=== PATIENT | male | born 1980 | race Caucasian/White ===

== ENCOUNTER 2017-09-21 15:16 | Emergency (ER) | payer OTHER ==
[~2017-09-21] VITALS: Ht 177.8 cm; Wt 63.5 kg
[2017-09-21 15:19] VITALS: BP 124/80
[2017-09-21] MEDS ORDERED: IV NORMAL SALINE 1,000ML 1,000 ML IV SCH (15:33)
[2017-09-21] MEDS ORDERED: HYDROmorphone PF 1 MG/ML DISP.SYRIN IV/SQ PRN (15:45)
[2017-09-21 15:59] LABS: BASO # 0.1 x10^3/uL (0.0-0.2); BASO % 1 % (0-3); EOS # 0.1 x10^3/uL (0.0-0.7); EOS % 1 % (0-3); HEMATOCRIT 44.6 % (39.0-53.0); HEMOGLOBIN 15.1 g/dL (13.0-17.5); LYMPH # 2.1 x10^3/uL (1.0-4.8); LYMPH % 9 % (24-48); MEAN CORPUSCULAR HEMOGLOBIN 31 pg (25-35); MEAN CORPUSCULAR HGB CONC 34 g/dL (31-37); MEAN CORPUSCULAR VOLUME 92 fL (79-100); MONO # 0.8 x10^3/uL (0.0-1.1); MONO % 3 % (0-9); NEUT # 20.5 x10^3uL (1.8-7.7); NEUT % 87 % (31-73); PLATELET COUNT 279 x10^3/uL (140-400); RED BLOOD COUNT 4.84 x10^6/uL (4.30-5.70); RED CELL DISTRIBUTION WIDTH 13.8 % (11.5-14.5); WHITE BLOOD COUNT 23.6 x10^3/uL (4.0-11.0)
[2017-09-21 16:10] LABS: ALBUMIN 4.2 g/dL (3.4-5.0); ALBUMIN/GLOBULIN RATIO 1.4 (1.0-1.7); CALCIUM 9.1 mg/dL (8.5-10.1); CREATININE 1.1 mg/dL (0.7-1.3); GFR 75.7; POTASSIUM 4.1 mmol/L (3.5-5.1); TOTAL BILIRUBIN 0.8 mg/dL (0.2-1.0); TOTAL PROTEIN 7.1 g/dL (6.4-8.2)
[2017-09-21] MEDS ORDERED: ONDANSETRON PF 4 MG/2 ML VIAL. IV ONE (16:15)
[2017-09-21] MEDS ORDERED: IOHEXOL 300 MG/ML 75 ML VIAL. IV ONE (16:15)
[2017-09-21 16:20] LABS: BACTERIA,URINE 0 /HPF (0-FEW); BILIRUBIN,URINE NEG (NEG); CLARITY,URINE HAZY; COLOR,URINE YELLOW; GLUCOSE,URINE NEG (NEG); NITRITE,URINE NEG (NEG); RBC,URINE TNTC /HPF (0-2); SQUAMOUS EPITHELIAL CELL,UR FEW /LPF; UROBILINOGEN,URINE 0.2 mg/dL (0.2 mg/dL)
--- NOTE | 2017-09-21 16:43 | RAD ---
PQRS Compliance Statement: One or more of the following individualized dose reduction techniques were utilized for this examination: 1. Automated exposure control 2. Adjustment of the mA and/or kV according to patient size 3. Use of iterative reconstruction technique CT abdomen/pelvis with contrast 09/21/2017 INDICATION: Right lower quadrant abdominal pain. COMPARISON: None available TECHNIQUE: Multiple axial CT images of the abdomen and pelvis were obtained after the intravenous initiation of 75 cc Omnipaque 300. Coronal and sagittal reformats are provided. FINDINGS: There is a 5 mm calcified granuloma at the left lung base. Visualized lung bases are otherwise clear. Heart size is within normal limits. There is a 8 mm hypodense lesion in the right hepatic dome. This is statistically favor to represent benign etiology such as a cyst or hemangioma in the absence of malignancy. Spleen, bilateral adrenal glands, and pancreas are normal in appearance. Gallbladder is present without adjacent inflammatory changes. The abdominal aorta is normal in course and caliber. There are no pathologically enlarged lymph nodes in abdomen or pelvis. There is no free fluid or free intraperitoneal air. The kidneys enhance symmetrically. There is a 2 mm calculus at the right ureterovesicular junction. There is associated mild hydroureteronephrosis. There is urothelial enhancement and periureteral fat stranding. No suspicious renal masses. Small and large bowel are normal in caliber. No evidence for bowel obstruction or inflammation. A normal appendix is visualized. No suspicious pelvic masses are identified. Urinary bladder is within normal limits given degree of distention. No suspicious osseous lesions are identified. IMPRESSION: 1. There is a 2 mm calculus at the right ureterovesicular junction. There is associated mild hydroureteronephrosis. Additionally, there is urothelial enhancement with periureteral fat stranding. Correlation with superimposed infection is recommended. 2. 8 mm hypodense lesion in the right hepatic dome is favored to represent benign etiology such as a cyst or hemangioma in the absence of underlying malignancy. Electronically signed by: Telma Arteaga MD (09/21/2017 4:40 PM) [facility]
--- NOTE | 2017-09-21 16:57 | PHYS DOC ---
Past History Past Medical History: No Pertinent History Past Surgical History: No Surgical History Smoking: Non-smoker Adult General Chief Complaint Chief Complaint: ABDOMINAL PAIN HPI HPI Patient is a 37-year-old male with right lower quadrant belly pain. He was playing the guitar had sudden onset of right lower quadrant belly pain. It was sharp. No radiation to the back. No dysuria. He's had no vomiting or diarrhea. Onset was sudden. Pain was severe. It is somewhat better now. No testicular pain. Review of Systems Review of Systems Constitutional: Denies fever or chills Eyes: Denies change in visual acuity, redness, or eye pain HENT: Denies nasal congestion or sore throat Respiratory: Denies cough or shortness of breath Cardiovascular: No additional information not addressed in HPI GI: History of present illness : Has had some dark urine Musculoskeletal: Denies back pain or joint pain Integument: Denies rash or skin lesions Neurologic: Denies headache, focal weakness or sensory changes Endocrine: Denies polyuria or polydipsia All other systems were reviewed and found to be within normal limits, except as documented in this note. Current Medications Current Medications Current Medications Medications (Trade) Dose Ordered Sig/Raj Start Time Stop Time Status Last Admin Dose Admin Hydromorphone HCl (Dilaudid) 1 mg PRN Q15MIN PRN 09/21/17 15:45 09/22/17 15:44 09/21/17 16:01 1 MG Iohexol (Omnipaque 300 Mg/ml) 75 ml 1X ONCE 09/21/17 16:15 09/21/17 16:16 DC 09/21/17 16:30 75 ML Ondansetron HCl (Zofran) 4 mg 1X ONCE 09/21/17 16:15 09/21/17 16:16 DC 09/21/17 16:01 4 MG Sodium Chloride 1,000 ml @ 1,000 mls/hr Q1H 09/21/17 15:33 09/21/17 16:32 DC 09/21/17 15:33 1,000 MLS/HR Allergies Allergies Allergies Coded Allergies Type Severity Reaction Last Updated Verified No Known Drug Allergies 09/21/17 No Physical Exam Physical Exam Constitutional: Well developed, well nourished, no acute distress, non-toxic appearance. HENT: Normocephalic, atraumatic, bilateral external ears normal, oropharynx moist, no oral exudates, nose normal. Eyes: PERRLA, EOMI, conjunctiva normal, no discharge. Neck: Normal range of motion, no tenderness, supple, no stridor. Cardiovascular:Heart rate regular rhythm, no murmur Lungs & Thorax: Bilateral breath sounds clear to auscultation Abdomen: Bowel sounds normal, soft,, no masses, no pulsatile masses. No point tenderness. Skin: Warm, dry, no erythema, no rash. Back: No tenderness, no CVA tenderness. Extremities: No tenderness, no cyanosis, no clubbing, ROM intact, no edema. Neurologic: Alert and oriented X 3, normal motor function, normal sensory function, no focal deficits noted. Psychologic: Affect normal, judgement normal, mood normal. Current Patient Data Vital Signs Vital Signs Date Time Temp Pulse Resp B/P (MAP) Pulse Ox O2 Delivery O2 Flow Rate FiO2 09/21/17 16:01 16 94 Lab Results Laboratory Tests Test 09/21/17 15:44 White Blood Count 23.6 x10^3/uL (4.0-11.0) H Red Blood Count 4.84 x10^6/uL (4.30-5.70) Hemoglobin 15.1 g/dL (13.0-17.5) Hematocrit 44.6 % (39.0-53.0) Mean Corpuscular Volume 92 fL (79-100) Mean Corpuscular Hemoglobin 31 pg (25-35) Mean Corpuscular Hemoglobin Concent 34 g/dL (31-37) Red Cell Distribution Width 13.8 % (11.5-14.5) Platelet Count 279 x10^3/uL (140-400) Neutrophils (%) (Auto) 87 % (31-73) H Lymphocytes (%) (Auto) 9 % (24-48) L Monocytes (%) (Auto) 3 % (0-9) Eosinophils (%) (Auto) 1 % (0-3) Basophils (%) (Auto) 1 % (0-3) Neutrophils # (Auto) 20.5 x10^3uL (1.8-7.7) H Lymphocytes # (Auto) 2.1 x10^3/uL (1.0-4.8) Monocytes # (Auto) 0.8 x10^3/uL (0.0-1.1) Eosinophils # (Auto) 0.1 x10^3/uL (0.0-0.7) Basophils # (Auto) 0.1 x10^3/uL (0.0-0.2) Platelet Estimate Pending Urine Collection Type Unknown Urine Color Yellow Urine Clarity Hazy Urine pH 6.0 Urine Specific [place] 1.025 Urine Protein 30 mg/dl (NEG-TRACE) Urine Glucose (UA) Neg mg/dL (NEG) Urine Ketones (Stick) Trace mg/dL (NEG) Urine Blood Large (NEG) Urine Nitrite Neg (NEG) Urine Bilirubin Neg (NEG) Urine Urobilinogen Dipstick 0.2 mg/dL (0.2 mg/dL) Urine Leukocyte Esterase Neg (NEG) Urine RBC Tntc /HPF (0-2) Urine WBC 1-4 /HPF (0-4) Urine Squamous Epithelial Cells Few /LPF Urine Bacteria 0 /HPF (0-FEW) Urine Mucus Mod /LPF Sodium Level 145 mmol/L (136-145) Potassium Level 4.1 mmol/L (3.5-5.1) Chloride Level 107 mmol/L (98-107) Carbon Dioxide Level 26 mmol/L (21-32) Anion Gap 12 (6-14) Blood Urea Nitrogen 17 mg/dL (8-26) Creatinine 1.1 mg/dL (0.7-1.3) Estimated GFR (Cockcroft-Gault) 75.7 BUN/Creatinine Ratio 15 (6-20) Glucose Level 144 mg/dL (70-99) H Calcium Level 9.1 mg/dL (8.5-10.1) Total Bilirubin 0.8 mg/dL (0.2-1.0) Aspartate Amino Transferase (AST) 10 U/L (15-37) L Alanine Aminotransferase (ALT) 17 U/L (16-63) Alkaline Phosphatase 66 U/L (46-116) Total Protein 7.1 g/dL (6.4-8.2) Albumin 4.2 g/dL (3.4-5.0) Albumin/Globulin Ratio 1.4 (1.0-1.7) Lipase 63 U/L (73-393) L EKG EKG [] Radiology/Procedures Radiology/Procedures CT scan: 2 mm stone; small liver mass. Int by radiologist. Course & Med Decision Making Course & Med Decision Making Pertinent Labs and Imaging studies reviewed. (See chart for details) Patient feels better. He is given a copy of his CT to show his doctor regarding liver mass. 2mm Kidney stone. Will return for worsening symptoms. DX: kidney stone Dismissed in stable conditionw itjh clear return warnings. Dragon Disclaimer Dragon Disclaimer This electronic medical record was generated, in whole or in part, using a voice recognition dictation system. Departure Departure: Disposition: HOME, SELF-CARE Condition: IMPROVED Referrals: SUNSHINE CHAPARRO MD (PCP) Scripts Ondansetron (ZOFRAN ODT) 8 Mg Tab.rapdis 4 MG PO TID, #10 Prov: HERNÁN RAYA MD 09/21/17 Tamsulosin Hcl (FLOMAX) 0.4 Mg Cap.er.24h 1 CAP PO DAILY, #7 CAP 11 Refills Prov: HERNÁN RAYA MD 09/21/17 Oxycodone Hcl/Acetaminophen (PERCOCET 7.5-325 MG TABLET) 1 Each Tablet 1 TAB PO BID, #15 TAB Prov: HERNÁN RAYA MD 09/21/17 HERNÁN RAYA MD Sep 21, 2017 16:57
[2017-09-21] MEDS ORDERED: ONDA8TAB12 PO (17:01)
[2017-09-21] MEDS ORDERED: OXYC-327 PO (17:01)
[2017-09-21] MEDS ORDERED: TAMS0.4C97 PO (17:01)
[2017-09-21 23:00] LABS: % BANDS 1 % (0-9); % LYMPHS 6 % (24-48); % MONOS 1 % (0-10); % SEGS 92 % (35-66)
[2017-09-21 23:01] LABS: PLT ESTIMATE ADEQUATE (ADEQUATE)
== END 2017-09-21 17:08 | disposition home or self-care (01) ==
LOC: ER 15:16
DX: N20.0 Calculus of kidney (principal)
CPT/HCPCS: 36415; 74177; 80053; 81001; 83690; 85007; 85025; 96361; 96374; 96375; 99285; J1170; J2405; Q9967; J7030

== ENCOUNTER 2018-06-02 11:52 | Emergency (ER) | payer OTHER ==
[~2018-06-02] VITALS: Ht 177.8 cm; Wt 63.5 kg
[~2018-06-02 11:52] MED LIST: ONDA8TAB12 PO; OXYC-327 PO; TAMS0.4C97 PO
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
--- NOTE | 2018-06-02 13:15 | RAD ---
3 views thoracic spine dated 06/02/2018. No comparison available. Clinical data indication: Pain after injury. FINDINGS: 3 views thoracic spine show minimal wedging of 3 mid level thoracic vertebral bodies, possibly T6, T7 and T8, age indeterminate. No paraspinous soft tissue abnormality. Minimal endplate hypertrophic changes throughout. IMPRESSION: 1. Mild wedging of 3 mid level thoracic vertebral bodies, age indeterminate. 2. Mild spondylosis. Electronically signed by: Liam Forte MD (06/02/2018 1:12 PM) [facility]
[2018-06-02] MEDS ORDERED: CYCL-331 PO (13:59)
[2018-06-02] MEDS ORDERED: NAPR-683 PO (13:59)
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
[2018-06-02 14:10] VITALS: BP 113/50
== END 2018-06-02 14:10 | disposition home or self-care (01) ==
LOC: ER 11:52
DX: S01.01XA Laceration without foreign body of scalp, initial encounter (principal); S16.1XXA Strain of muscle, fascia and tendon at neck level, initial encounter; S29.012A Strain of muscle and tendon of back wall of thorax, initial encounter; M48.34 Traumatic spondylopathy, thoracic region; M25.511 Pain in right shoulder; V43.53XA Car driver injured in collision with pick-up truck in traffic accident, initial encounter; Y93.I9 Activity, other involving external motion; Y92.415 Exit ramp or entrance ramp of street or highway as the place of occurrence of the external cause; Y99.8 Other external cause status
CPT/HCPCS: 70450; 72072; 72125; 73030; 99284